=== PATIENT | male | born 1940 | race Hispanic/Latino ===

== ENCOUNTER → 2020-09-13 | Outpatient (CLI) | payer OTHER, MEDICARE ==
[~2020-09-13] MED LIST: AMLO-258 PO; ASPI-556 PO; GARL1000 PO; LISI40TA4 PO; METF-444 PO; METO-408 PO; MULT-1192 PO; TRAZ-185 PO
== END | disposition home or self-care (01) ==
LOC: OIH 08:12
PROVIDERS: ATTEND Internal Medicine
DX: I10 Essential (primary) hypertension (principal); M47.815 Spondylosis without myelopathy or radiculopathy, thoracolumbar region
CPT/HCPCS: 71046

== ENCOUNTER → 2025-01-04 | Outpatient (CLI) | payer OTHER, MEDICARE ==
[~2025-01-04] MED LIST changes: -GARL1000 PO; +GARL10002 PO; -LISI40TA4 PO; +LISI40TA9 PO
--- NOTE | 2025-01-04 09:37 | HMCIMG ---
Exam Type: US ABDOMINAL COMPLETE Clinical Information: ventral hernia Comparison: None Findings: The liver shows normal echogenicity is otherwise unremarkable. Doppler evaluation shows patent portal and hepatic veins. The gallbladder is surgically absent. No bile duct dilatation is noted. The common bile duct measures 4 mm. The right kidney measures 10.1 x 3.5 cm. The left kidney measures 9.3 x 3.5 cm. The kidneys show no hydronephrosis or calculi, masses or other abnormalities except for bilateral simple cysts. The pancreas is suboptimally visualized. The spleen is unremarkable. The aorta and inferior vena cava show no significant abnormalities. IMPRESSION: Status post cholecystectomy. Otherwise unremarkable exam.
--- NOTE | 2025-01-04 10:32 | HMCIMG ---
Abdominal wall ultrasound Findings: No fluid collections or masses are seen. Significantly, there is no evidence of hematoma. No increased fluid throughout the visualized tissue planes is identified. No lymphadenopathy is identified. Impression: No evidence of hematoma or fluid collections or other abnormalities.
== END | disposition home or self-care (01) ==
LOC: RAH 07:28
PROVIDERS: ATTEND Internal Medicine
DX: K43.9 Ventral hernia without obstruction or gangrene (principal); Z90.49 Acquired absence of other specified parts of digestive tract
CPT/HCPCS: 76700; 76705